=== PATIENT | male | born 1995 | race Caucasian/White ===

== ENCOUNTER 2017-04-01 05:32 | Emergency (ER) | payer OTHER, SELFPAY ==
[~2017-04-01] VITALS: Ht 190.5 cm; Wt 100.0 kg
[2017-04-01 05:37] VITALS: BP 134/78
[2017-04-01] MEDS ORDERED: ONDANSETRON 2MG/ML, 2ML IVPush ONE (06:30)
[2017-04-01] MEDS ORDERED: SODIUM CHLORIDE 0.9% 1,000ML IVBOLUS ONE (06:30)
[2017-04-01 07:05] LABS: ASPARTATE AMINO TRANSFERASE 33 U/L (15-37); BLOOD UREA NITROGEN 9 mg/dL (7-18)
[2017-04-01] MEDS ORDERED: ONDANSETRON 2MG/ML, 2ML ONE (07:27)
== END 2017-04-01 10:30 | disposition home or self-care (01) ==
LOC: ED 10:20
DX: F10.221 Alcohol dependence with intoxication delirium (principal)
CPT/HCPCS: 36415; 80053; 80307; 85025; 96361; 96374; 99285; J2405; J7030

== ENCOUNTER 2021-06-02 13:40 | Outpatient (CLI) | payer OTHER | END 2021-06-02 23:59 | disposition home or self-care (01) | LOC: CVU 13:40 | PROVIDERS: ATTEND Internal Medicine Cardiovascular Disease | DX: R55 Syncope and collapse (principal) | CPT/HCPCS: 93306; 93356 ==